=== PATIENT | female | born 1985 | race Two or more races ===

== ENCOUNTER 2020-11-26 16:15 | Emergency (ER) | payer OTHER ==
[~2020-11-26] VITALS: Ht 160 cm; Wt 57.7 kg
[2020-11-26 16:27] VITALS: BP 115/79
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
== END 2020-11-26 17:09 | disposition home or self-care (01) ==
LOC: ER 16:15
DX: M25.552 Pain in left hip (principal); M54.5 Low back pain
CPT/HCPCS: 72100; 73502; 99284